=== PATIENT | female | born 1985 | race Caucasian/White ===

== ENCOUNTER 2021-10-07 10:05 | Inpatient (IN) | payer OTHER, BC, MEDICAID, SELFPAY ==
[2021-10-07 10:21] VITALS: BP 135/78; PULSE 75; RESP 18; TEMP 36.9; O2SAT 98
[2021-10-07 10:24] VITALS: BMI 31.3
--- NOTE | 2021-10-07 11:04 | PC.NURSE ---
ADMISSION ASSESSMENT 35 YEAR OLD FEMALE TRANSFERRED FROM [facility] IN [place], [place] TO NPU VIA AMBULANCE AT [facility], AMBULATORY UPON ADMISSION. PATIENT REPORTS SHE IS HERE BECAUSE HER SAID I TRIED TO HANG MYSELF WITH A ROPE BUT I DON'T BELIEVE IT. DOES REPORT A PRIOR SUICIDE ATTEMPT 20 YEARS AGO WHEN SHE FOUND HER DAUGHTER . STATES SHE TRIED TO SLICE MY WRISTS. REPORTS THAT SHE HAS A HAPPY LIFE AND LOTS OF SUPPORT. STATES THAT HER AND HER ARE GOING THROUGH SOME STUFF RIGHT NOW DUE TO HIM HAVING AN AFFAIR. REPORTS SHE DOES NOT SEE A DR FOR MENTAL HEALTH AT THIS TIME. STATES THE ONLY MEDICATION SHE TAKES IS NIACIN AND THAT IS TO STOP HER CANCER FROM GROWING. PT REPORTS SHE WAS DIAGNOSED WITH BASIL CELL MELANOMA 4 YEARS AGO. SHE IS HERE VOLUNTARILY WITH AFFIDAVITS. UDS + FOR THC. STATES SHE SMOKES DAILY, IT HELPS HER WITH HER ANXIETY AND PTSD. STATES SHE HAS BEEN SELF MEDICATING WITH THC FOR 10 YEARS SINCE SHE HAS BEEN WITH HER . 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 DENIES PAIN. DENIES SI/HI AND AVH AT THIS TIME.
[2021-10-07 14:00] VITALS: BP 106/69; PULSE 72; RESP 17; TEMP 36.8; O2SAT 97
[2021-10-07] MEDS: nicotine 2 mg Gum BUCCAL (20:16)
[2021-10-07 20:47] VITALS: BP 128/84; PULSE 72; RESP 16; TEMP 37; O2SAT 97
[2021-10-08] MEDS: nicotine 2 mg Gum BUCCAL ×2 (05:29→22:04)
[2021-10-08] MEDS: nicotine 21 mg Patch 1 PATCH TRANSDERMA (05:29)
[2021-10-08 06:00] VITALS: BP 108/74; PULSE 69; RESP 16; O2SAT 96
--- NOTE | 2021-10-08 07:31 | P.NPUHP_ITS ---
Providers/Chief Complaint Admitting Physician: Ambrosio Strange MD Primary Care Provider: Stefan Daley MD Chief Complaint: Psych HPI NPU History of Present Illness Ester Kelly is a 35 year old female who I resent it to the outside hospital with concerns for suicidality based on her being found next to a rope by her . She was transferred to [facility] and admitted to the neuropsychiatric unit for definitive treatment of those issues. She presents today reporting that she has no recollection of the circumstances that have led to her to being in the hospital at this point. She reports that she was reportedly discovered by her with a rope next to her. But she does not recall anything surrounding that. She did have a traumatic event when she was 15 and found her daughter from SIDS in her bed. She reports other traumatic events including the of her older brother as well as recently having her daughter move out which has had a certain sort of trauma. She endorses a history of PTSD symptoms. Nightmares, flashbacks, hypervigilance as well as intrusive thoughts. She does report a little bit of treatment once before with Wellbutrin and some counseling. She reports that the only thing that?s worked though has been cannabis. She?s never been inpatient previously. She reports that she is not interested in any medication. She agreed that we could speak with her and do our due diligence to make sure that she is safe. We agreed that we would review the affidavits and determine whether a 96 hour hold would be necessary or how long we would need to monitor her to ensure safety.I resent it to the outside hospital with concerns for suicidality based on her being found next to a rope by her . She was transferred to [facility] and admitted to the neuropsychiatric unit for definitive treatment of those issues. She presents today reporting that she has no recollection of the circumstances that have led to her to being in the hospital at this point. She reports that she was reportedly discovered by her with a rope next to her. But she does not recall anything surrounding that. She did have a traumatic event when she was 15 and found her daughter from SIDS in her bed. She reports other traumatic events including the of her older brother as well as recently having her daughter move out which has had a certain sort of trauma. She endorses a history of PTSD symptoms. Nightmares, flashbacks, hypervigilance as well as intrusive thoughts. She does report a little bit of treatment once before with Wellbutrin and some counseling. She reports that the only thing that?s worked though has been cannabis. She?s never been inpatient previously. She reports that she is not interested in any medication. She agreed that we could speak with her and do our due diligence to make sure that she is safe. We agreed that we would review the affidavits and determine whether a 96 hour hold would be necessary or how long we would need to monitor her to ensure safety. Psychiatric history: As above. Substance abuse history: She endorsed smoking three packs of cigarettes a day, denied alcohol use, endorsed marijuana use occasionally but not any other illicit drug use. She denies rehabs or DUIs. Patient denies mental health or addiction issues on either side of the family and denies suicide attempts or completions in the family. There were no problems with the , or delivery, learned to walk and talk and met developmental milestones on time, and denies need for speech therapy, learning support, emotional support or special education classes. Patient reports that her parents were together when she was born and then she has an older brother that about 17 years ago. Her childhood was really good and she denies emotional physical or sexual abuse. 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 Your horse she?s bisexual has been three times twice. She had five daughters one of us 20 years ago she?s never been a , equality endorses being Restorationist. 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 She lives in a house with her and three children. She?s never been to [facility]dc. Meds NPU Home Medications Medication Instructions Recorded Confirmed Last Taken Type niacin 50 mg tablet 50 mg PO DAILY 10/07/21 10/07/21 Unknown History Allergies Allergy/AdvReac Type Severity Reaction Status Date / Time No Known Allergies Allergy Verified 10/07/21 11:09 Mental Status Exam MSE Comments: This is a overweight versus obese female with adequate grooming and eye contact in hospital scrubs. No abnormal movements except for mild psychomotor retardation. Cooperative with exam in no acute distress. Speech was slightly decreased rate and volume. Mood described as okay affect subdued. Thought process organized.Thought contact: patient denies suicidal or homicidal ideation, there were no delusions reported or noted, patient denied auditory or visual hallucinations. Attention and concentration appeared intact and memory appeared reliable but none were formally tested. Patient is alert and oriented times three. Insight and judgment appear fair and impulse control appears limited. Vitals/I&O/Wt Last Vital Signs Temp 98.6 F 10/07/21 20:47 Pulse 69 10/08/21 06:00 Resp 16 10/08/21 06:00 BP 108/74 10/08/21 06:00 Pulse Ox 96 10/08/21 06:00 Weight last 48 hrs Weight 90.718 kg A&P Assessment and plan (1) PTSD (post-traumatic stress disorder): Status: Acute (2) Adjustment disorder with mixed disturbance of emotions and conduct: Status: Acute (3) Cannabis use disorder, mild, abuse: Status: Acute Plan This is a 35-year-old with a long history and past suicide attempts found by her in a situation very suggestive of a suicidal gesture or attempt who presents now reporting she is doing better and not interested in medications. 1. Continue current medication. 2. Continue every 15 minute checks for safety. 3. Encourage individual, group and milieu therapies. 4. Encourage sober living treatment after discharge at the highest level of care to which he is willing to commit. Involuntary Hold Information 96 Hour Hold: 96 Hour Involuntary Admission: No Attestations NPU Medical Necessity Statement*: Inpatient hospitalization is medically necessary and the clinically appropriate intervention at this time. We will monitor medication to make changes as indicated. Patient will be in the hospital for over two midnights. Likely length of stay 2-4 days. 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
[2021-10-08 14:00] VITALS: BP 113/74; PULSE 94; RESP 18; TEMP 36.1; O2SAT 98
[2021-10-08 20:52] VITALS: BP 121/73; PULSE 78; RESP 18; TEMP 36.7; O2SAT 97
--- NOTE | 2021-10-08 20:54 | P.NPUPN_ITS ---
Subjective NPU Subjective: Patient presents today reporting that she feeling much better. She believes that her over estimated was really going on and her intensity however she is not able to get alternative explanation for the situation she found her self in. She is very hopeful to go home soon and reports that her wanted to go home and is feeling like she is more safe now and he was just worried before. We discussed the possibility of connecting with her and identifying ways that we can assist her from a mental health treatment standpoint. She is not interested at this time and starting new medications. Mental Status Exam MSE Comments: This is a overweight versus obese female with adequate grooming and eye contact in hospital scrubs.? No abnormal movements except for mild psychomotor retardation.? Cooperative with exam in no acute distress.? Speech was slightly more normal rate and volume.? Mood described as better affect brighter.? Thought process organized.Thought contact: patient denies suicidal or homicidal ideation, there were no delusions reported or noted, patient denied auditory or visual hallucinations. Attention and concentration appeared intact and memory appeared reliable but none were formally tested. Patient is alert and oriented times three. Insight and judgment appear fair and impulse control appears limited. Vitals/I&O/Wt Last Vital Signs Temp 98.0 F 10/08/21 20:52 Pulse 78 10/08/21 20:52 Resp 18 10/08/21 20:52 BP 121/73 10/08/21 20:52 Pulse Ox 97 10/08/21 20:52 Weight last 48 hrs Weight 90.718 kg A&P Assessment and plan (1) Cannabis use disorder, mild, abuse: Status: Acute (2) Adjustment disorder with mixed disturbance of emotions and conduct: Status: Acute (3) PTSD (post-traumatic stress disorder): Status: Acute Plan This is a 35-year-old with a long history and past suicide attempts found by her in a situation very suggestive of a suicidal gesture or attempt who presents now reporting she is doing better and not interested in medications. 1.? Continue current medication. 2.? Continue every 15 minute checks for safety. 3.? Encourage individual, group and milieu therapies. 4.? Encourage sober living treatment after discharge at the highest level of care to which he is willing to commit. Involuntary Hold Information 96 Hour Hold: 96 Hour Involuntary Admission: No Attestations NPU Medical Necessity Statement*: Inpatient hospitalization is medically necessary and the clinically appropriate intervention at this time. We will monitor medication to make changes as indicated. Patient will be in the hospital for over two midnights. Likely length of stay 2-4 days. 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
--- NOTE | 2021-10-09 04:38 | PC.NURSE ---
AT START OF SHIFT PT UP IN DAYROOM SOCIALIZING WITH OTHERS. GOOD INTERACTION NOTED.DENIED SI/HI AND AVH. NO C/O VOICED. PT RESTED IN BED WITH EYES CLOSED UNTIL APPROXIMATELY 0415. HAS BEEN UNABLE TO GO BACK TO SLEEP AT THIS TIME. UP IN DAYROOM WITH ROOMMATE AT THIS TIME.
[2021-10-09 06:00] VITALS: BP 107/74; PULSE 67; RESP 18; TEMP 36.5; O2SAT 97
[2021-10-09] MEDS: nicotine 21 mg Patch 1 PATCH TRANSDERMA (07:52)
--- NOTE | 2021-10-09 11:50 | P.NPUDS_ITS ---
Diagnoses at Discharge Discharge Diagnosis (1) Cannabis use disorder, mild, abuse: Status: Acute (2) Adjustment disorder with mixed disturbance of emotions and conduct: Status: Acute (3) PTSD (post-traumatic stress disorder): Status: Acute Reason for Visit Reason for Visit: Psych Brief History: History of Present Illness Ester Kelly is a 35 year old female who I resent it to the outside hospital with concerns for suicidality based on her being found next to a rope by her . She was transferred to [facility] and admitted to the neuropsychiatric unit for definitive treatment of those issues. She presents today reporting that she has no recollection of the circumstances that have led to her to being in the hospital at this point. She reports that she was reportedly discovered by her with a rope next to her. But she does not recall anything surrounding that. She did have a traumatic event when she was 15 and found her daughter from SIDS in her bed. She reports other traumatic events including the of her older brother as well as recently having her daughter move out which has had a certain sort of trauma. She endorses a history of PTSD symptoms. Nightmares, flashbacks, hypervigilance as well as intrusive thoughts. She does report a little bit of treatment once before with Wellbutrin and some counseling. She reports that the only thing that?s worked though has been cannabis. She?s never been inpatient previously. She reports that she is not interested in any medication. She agreed that we could speak with her and do our due diligence to make sure that she is safe. We agreed that we would review the affidavits and determine whether a 96 hour hold would be necessary or how long we would need to monitor her to ensure safety.I resent it to the outside hospital with concerns for suicidality based on her being found next to a rope by her . She was transferred to [facility] and admitted to the neuropsychiatric unit for definitive treatment of those issues. She presents today reporting that she has no recollection of the circumstances that have led to her to being in the hospital at this point. She reports that she was reportedly discovered by her with a rope next to her. But she does not recall anything surrounding that. She did have a traumatic event when she was 15 and found her daughter from SIDS in her bed. She reports other traumatic events including the of her older brother as well as recently having her daughter move out which has had a certain sort of trauma. She endorses a history of PTSD symptoms. Nightmares, flashbacks, hypervigilance as well as intrusive thoughts. She does report a little bit of treatment once before with Wellbutrin and some counseling. She reports that the only thing that?s worked though has been cannabis. She?s never been inpatient previously. She reports that she is not interested in any medication. She agreed that we could speak with her and do our due diligence to make sure that she is safe. We agreed that we would review the affidavits and determine whether a 96 hour hold would be necessary or how long we would need to monitor her to ensure safety. Psychiatric history: As above. Substance abuse history: She endorsed smoking three packs of cigarettes a day, denied alcohol use, endorsed marijuana use occasionally but not any other illicit drug use. She denies rehabs or DUIs. Patient denies mental health or addiction issues on either side of the family and denies suicide attempts or completions in the family. There were no problems with the , or delivery, learned to walk and talk and met developmental milestones on time, and denies need for speech therapy, learning support, emotional support or special education classes. Patient reports that her parents were together when she was born and then she has an older brother that about 17 years ago. Her childhood was really good and she denies emotional physical or sexual abuse. 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 Your horse she?s bisexual has been three times twice. She had five daughters one of us 20 years ago she?s never been a , equality endorses being Sikh. 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 She lives in a house with her and three children. She?s never been to [facility]. Hospital Course Hospital Course She slowly acclimated to the individual, group in milieu therapies. She denies that she had any psychiatric concerns but was on a 96 hour hold. We got a collateral information and ultimately her identified that he felt safe with her returning even though there was no change in medication. She did have modest improvement during this day and was able to contract for safety outside of the hospital prior to discharge.During the hospitalization, patient had routine laboratory studies which were within normal limits except for few outliers. Additionally there was a general medical evaluation which was also within normal limits and revealed no new acute processes. Discharge Summary: At the time of discharge, lethality and psychosis were denied. Mood and anxiety were well managed. Patient endorsed a plan to avoid all drugs of abuse and follow-up with the aftercare recommendations of the treatment team. Patient was evaluated and deemed to be absent credible lethality, and had achieved the maximum benefit from an inpatient hospitalization, so was discharged. Involuntary Hold Information 96 Hour Hold: 96 Hour Involuntary Admission: No Mental Status Exam MSE Comments: This is a overweight versus obese female with adequate grooming and eye contact in hospital scrubs.? No abnormal movements except for mild psychomotor retardation.? Cooperative with exam in no acute distress.? Speech was normal rate and volume.? Mood described as pretty good, affect brighter.? Thought process organized.Thought contact: patient denies suicidal or homicidal ideation, there were no delusions reported or noted, patient denied auditory or visual hallucinations. Attention and concentration appeared intact and memory appeared reliable but none were formally tested. Patient is alert and oriented times three. Insight and judgment appear fair and impulse control appears limited. Discharge Data Vitals: Last Vital Signs Temp 97.7 F 10/09/21 06:00 Pulse 67 10/09/21 06:00 Resp 18 10/09/21 06:00 BP 107/74 10/09/21 06:00 Pulse Ox 97 10/09/21 06:00 Discharge Plan Discharge Patient Disposition: Home Condition: Stable Prescriptions: Continued niacin 50 mg Tablet 50 mg PO DAILY 0RF Discharge Orders: Discharge Order (Routine); Ordered 10/09/21 Ordered By: Ambrosio Strange Referrals: [facility] [Other] (Walk in status from Friday through Friday 8:00 am to 4:00 pm. Bring photo id, mail to [facility] address, ss #, Insurance proof and medication list. ) [facility]- Dr. Stefan Daley [Other] - 10/15/21 2:40 pm (Dr. Stefan Daley will make referral for behavioral health.) Discharge Diet: Regular Discharge Activity: Resume usual activity Patient Instructions: Post Traumatic Stress Disorder (GEN), Opioid Safety Discharge Attestations NPU Time Spent in Discharge Care*: less than 30 min Specific Discharge Activities: Specific discharge activities: educating patient, discussing with rn case management/social workers/dc planners, documenting/other paperwork and evaluating patient/reviewing data Coding Level of Care Code Acute Chg FW DC note Diagnoses Cannabis use disorder, mild, abuse F12.10 Adjustment disorder with mixed disturbance of emotions and conduct F43.25 PTSD (post-traumatic stress disorder) F43.10
[2021-10-09 12:18] VITALS: BP 107/74; PULSE 67; RESP 18; TEMP 36.5; O2SAT 97
== END 2021-10-09 13:50 | disposition home or self-care (01) | DRG 882 ==
PROVIDERS: Admitting Provider Psychiatry & Neurology Psychiatry; PCP Family Medicine; Visit Provider Psychiatry & Neurology Psychiatry
DX: F43.10 Post-traumatic stress disorder, unspecified (principal); F43.25 Adjustment disorder with mixed disturbance of emotions and conduct; F12.10 Cannabis abuse, uncomplicated; F17.210 Nicotine dependence, cigarettes, uncomplicated; Z63.4 Disappearance and death of family member
CPT/HCPCS: 97150; 97165